=== PATIENT | male | born 1990 | race Caucasian/White ===

== ENCOUNTER 2016-11-29 08:32 | Emergency (ER) | payer OTHER ==
[2016-11-29 08:37] VITALS: BP 126/66; PULSE 60; TEMP 98.1; BMI 33.5
--- NOTE | 2016-11-29 08:59 | PDOC ---
History of Present Illness - General Chief Complaint: Eye Problem Stated Complaint: PINK EYE Time Seen by Provider: 11/29/16 08:45 History Source: Patient Exam Limitations: No Limitations - History of Present Illness Initial Comments: CHIEF COMPLAINT: 26 y/o afebrile male with PMH HTN c/o red eyes that are stuck shut with yellow crust in the morning for the past few days. HISTORY OF PRESENT ILLNESS: The patient also needs a refill on his diovan as he does not have a PCP. He denies f/c, itchy eyes, changes in vision/hearing, [place]. Vital signs on arrival are within normal limits. REVIEW OF SYSTEMS: GENERAL/CONSTITUTIONAL: No fever/chills. No weakness. No weight change. HEAD, EYES, EARS, NOSE AND THROAT: No change in vision. No ear pain or discharge. No sore throat. +red eyes and yellow crusting MUSCULOSKELETAL: No joint or muscle swelling or pain. No neck or back pain. SKIN: No rash or easy bruising. NEUROLOGIC: No headache, vertigo, loss of consciousness, or loss of sensation. GENERAL: The patient is awake, alert, and fully oriented, in no acute distress. HEAD: Normal with no signs of trauma. EYES: Pupils equal, round and reactive to light, extraocular movements intact, sclera anicteric, conjunctiva injected b/l. Yellow crusting seen on lid margin of left eye. EXTREMITIES: Normal range of motion, no edema. NEUROLOGICAL: Normal speech, normal gait. PSYCH: Normal mood, normal affect. SKIN: Warm, Dry, normal turgor, no rashes or lesions noted. Past History - Past Medical History Allergies/Adverse Reactions: Allergies Allergy/AdvReac Type Severity Reaction Status Date / Time No Known Allergies Allergy Verified 08/24/16 23:19 Home Medications: Ambulatory Orders Erythromycin 0.5% Eye Ointment [Erythromycin 0.5% Eye Ointment -] 1 applic OU TID #1 tube 11/29/16 Valsartan [Diovan] 80 mg PO DAILY 11/29/16 Valsartan [Diovan] 80 mg PO DAILY #15 tablet 11/29/16 Anemia: No Asthma: No DVT: No Dialysis: No HTN: Yes - Surgical History Appendectomy: No Cardiac Surgery: No - Psycho/Social/Smoking Cessation Hx Anxiety: No Suicidal Ideation: No Smoking History: Never smoked Have you smoked in the past 12 months: No Information on smoking cessation initiated: No Hx Alcohol Use: No Drug/Substance Use Hx: No Substance Use Type: None *Physical Exam - Vital Signs Last Vital Signs Temp Pulse Resp BP Pulse Ox 98.1 F 60 16 126/66 100 11/29/16 08:35 11/29/16 08:35 11/29/16 08:35 11/29/16 08:35 11/29/16 08:35 Medical Decision Making - Medical Decision Making A/P: 26 y/o afebrile male with b/l conjunctivitis. Will discharge to home with rx for erythro eye ointment and diovan. Provided referral to Dr. George for follow up and future prescription refills. The patient verbalizes understanding of all instructions, has no further questions and is awaiting discharge. *DC/Admit/Observation/Transfer Diagnosis at time of Disposition: Medication refill Conjunctivitis Qualifiers: Conjunctivitis type: acute Acute conjunctivitis type: bacterial Laterality: bilateral Qualified Code(s): H10.33 - Unspecified acute conjunctivitis, bilateral - Discharge Dispostion Disposition: HOME Condition at time of disposition: Good - Prescriptions Prescriptions: Valsartan [Diovan] 80 mg PO DAILY #15 tablet Erythromycin 0.5% Eye Ointment [Erythromycin 0.5% Eye Ointment -] 1 applic OU TID #1 tube - Referrals Referrals: Marcelino George MD [Staff Physician] - Call tomorrow - Patient Instructions Printed Discharge Instructions: DI for Conjunctivitis Additional Instructions: Discharge Instructions: -Take medication as prescribed -Please follow up with Dr. George as soon as possible to set up care and receive Diovan prescriptions -REturn to the ER with any worsening or concerning symptoms Print Language: CITIZEN OF [place]
== END 2016-11-29 09:07 | disposition home or self-care (01) ==
LOC: JERFT 08:32
DX: H10.33 Unspecified acute conjunctivitis, bilateral (principal); I10 Essential (primary) hypertension; Z76.0 Encounter for issue of repeat prescription
CPT/HCPCS: 99281-25

== ENCOUNTER 2016-12-06 00:03 | Emergency (ER) | payer OTHER ==
[2016-12-06] MEDS ORDERED: AMOXICILLIN 500 MG CAPSULE (FP) PO ONE (00:50)
[2016-12-06 01:03] VITALS: BP 127/71; PULSE 73; BMI 34.4
[2016-12-06] MEDS ORDERED: AMOXICILLIN 500 MG CAPSULE (FP) ONE (01:03)
--- NOTE | 2016-12-06 01:20 | PDOC ---
History of Present Illness - General Chief Complaint: Sore Throat Stated Complaint: SORE THROAT Time Seen by Provider: 12/06/16 00:44 History Source: Patient Exam Limitations: No Limitations - History of Present Illness Initial Comments: 12/06/16 01:14 26yo Male patient presents to ED c/o sore throat x 1 day. He denies fever, CP, abd pain, n/v/d, diff breathing, smoking, drug use, or any other complaints at this time. Timing/Duration: reports: yesterday Severity: reports: severe Possible Cause: Yes: no prior episodes Past History - Travel Traveled outside of the country in the last 30 days: No Close contact w/someone who was outside of country & ill: No - Past Medical History Allergies/Adverse Reactions: Allergies Allergy/AdvReac Type Severity Reaction Status Date / Time No Known Allergies Allergy Verified 12/06/16 00:13 Home Medications: Ambulatory Orders Valsartan [Diovan] 80 mg PO DAILY #15 tablet 11/29/16 Amoxicillin - [Amoxicillin 500mg Capsule -] 500 mg PO TID #21 capsule 12/06/16 Pantoprazole Sodium [Protonix -] 40 mg PO DAILY #30 tablet.ec 12/06/16 Anemia: No Asthma: No DVT: No Dialysis: No HTN: Yes - Surgical History Appendectomy: No Cardiac Surgery: No - Psycho/Social/Smoking Cessation Hx Anxiety: No Suicidal Ideation: No Smoking History: Never smoked Have you smoked in the past 12 months: No Hx Alcohol Use: No Drug/Substance Use Hx: No Substance Use Type: None Respiratory Specific PMHX - Complaint Specific PMHX Angina: No Pulmonary Embolus: No Review of Systems - Review of Systems Able to Perform ROS?: Yes Is the patient limited Eritrean proficient: No Constitutional: No: Chills, Fever HEENTM: Yes: Throat Pain, Difficulty Swallowing. No: Nose Congestion, Throat Swelling, Dental Problems Respiratory: Yes: Cough. No: Shortness of Breath, Stridor, Wheezing, Productive cough Cardiac (ROS): No: Chest Pain, Lightheadedness, Palpitations, Syncope ABD/GI: No: Constipated, Diarrhea, Nausea, Poor Appetite, Poor Fluid Intake, Vomiting Integumentary: No: Bruising, Erythema, Rash Neurological: No: Headache, Numbness, Paresthesia, Seizure, Tingling, Tremors, Weakness, Ataxia, Dizziness All Other Systems: Reviewed and Negative *Physical Exam - Vital Signs Last Vital Signs Temp Pulse Resp BP Pulse Ox 73 18 127/71 100 12/06/16 00:13 12/06/16 00:13 12/06/16 00:13 12/06/16 00:13 - Physical Exam General Appearance: Yes: Nourished, Appropriately Dressed. No: Apparent Distress, Mild Distress, Moderate Distress, Severe Distress HEENT: positive: EOMI, MARSHA, Normal Voice, Symmetrical, TMs Normal, Pharyngeal Erythema. negative: Muffled/Hoarse voice, Tonsillar Exudate, Tonsillar Erythema , TM Bulging, TM Dull, TM Erythema Neck: positive: Trachea midline, Supple. negative: Rigid, Stridor, Lymphadenopathy (R), Lymphadenopathy (L) Respiratory/Chest: positive: Lungs Clear, Normal Breath Sounds. negative: Chest Tender, Respiratory Distress, Accessory Muscle Use, Labored Respiration, Rapid RR Cardiovascular: positive: Regular Rhythm, Regular Rate Gastrointestinal/Abdominal: positive: Normal Bowel Sounds, Soft. negative: Tender, Distended, Guarding, Rebound, Tenderness Lymphatic: negative: Adenopathy Musculoskeletal: positive: Normal Inspection. negative: CVA Tenderness, Decreased Range of Motion Extremity: positive: Normal Capillary Refill, Normal Inspection, Normal Range of Motion. negative: Swelling, Erythema, Inflammation Integumentary: positive: Normal Color, Dry, Warm. 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, Fully Oriented, Alert, Normal Mood/ Affect, Normal Response, Motor Strength 5/5 ED Treatment Course - Medications Given in the ED: ED Medications Discontinued Medications Generic Name Dose Route Start Last Admin Trade Name Marzena PRN Reason Stop Dose Admin Amoxicillin 500 mg 12/06/16 00:50 12/06/16 01:05 Amoxicillin - PO 12/06/16 00:51 500 mg ONCE ONE Administration *DC/Admit/Observation/Transfer Diagnosis at time of Disposition: Gastroesophageal reflux disease with esophagitis, Cough - Discharge Dispostion Disposition: HOME Condition at time of disposition: Stable Admit: No - Prescriptions Prescriptions: Amoxicillin - [Amoxicillin 500mg Capsule -] 500 mg PO TID #21 capsule Pantoprazole Sodium [Protonix -] 40 mg PO DAILY #30 tablet.ec - Patient Instructions Printed Discharge Instructions: DI for Gastroesophageal Reflux Disease (GERD) Additional Instructions: FOLLOW UP WITH YOUR PRIMARY CARE PROVIDER. CALL TO SCHEDULE APPOINTMENT. TAKE MEDICATIONS PRESCRIBED. MOTRIN OR TYLENOL FOR PAIN NEEDED. RETURN IF WORSENING OF SYMPTOMS. Print Language: SERBIAN - Post Discharge Activity Work/School Note: Back to Work
== END 2016-12-06 04:47 | disposition home or self-care (01) ==
LOC: JER 00:03
DX: K21.9 Gastro-esophageal reflux disease without esophagitis (principal); I10 Essential (primary) hypertension
CPT/HCPCS: 99281-25

== ENCOUNTER → 2016-12-10 | Emergency (ER) | payer OTHER ==
[~2016-12-10] MED LIST: FAMOTIDINE 20 MG/50 ML IVPB 50 ML IVPB ONE; PANTOPRAZOLE SODIUM 100 ML IVPB ONE
--- NOTE | 2016-12-10 03:53 | PDOC ---
History of Present Illness - General Stated Complaint: COUGH, THROAT PAIN Time Seen by Provider: 12/10/16 03:49 History Source: Patient Exam Limitations: No Limitations - History of Present Illness Timing/Duration: reports: week (one week) Possible Cause: Yes: no prior episodes Associated Symptoms: reports: cough, fever/chills, nasal congestion. denies: chest pain/soreness, facial pain Past History - Travel Traveled outside of the country in the last 30 days: No Close contact w/someone who was outside of country & ill: No - Past Medical History Allergies/Adverse Reactions: Allergies Allergy/AdvReac Type Severity Reaction Status Date / Time No Known Allergies Allergy Verified 12/06/16 00:13 Home Medications: Ambulatory Orders Valsartan [Diovan] 80 mg PO DAILY #15 tablet 11/29/16 Amoxicillin - [Amoxicillin 500mg Capsule -] 500 mg PO TID #21 capsule 12/06/16 Pantoprazole Sodium [Protonix -] 40 mg PO DAILY #30 tablet.ec 12/06/16 Anemia: No Asthma: No DVT: No Dialysis: No HTN: Yes - Surgical History Appendectomy: No Cardiac Surgery: No - Psycho/Social/Smoking Cessation Hx Anxiety: No Suicidal Ideation: No Smoking History: Never smoked Have you smoked in the past 12 months: No Hx Alcohol Use: No Drug/Substance Use Hx: No Substance Use Type: None Respiratory Specific PMHX - Complaint Specific PMHX Angina: No Pulmonary Embolus: No Review of Systems - Review of Systems Able to Perform ROS?: Yes Comments:: 12/10/16 03:50 CONSTITUTIONAL: Absent: fever, chills, diaphoresis, generalized weakness, malaise, loss of appetite HEENT: +nasal congestion Absent: rhinorrhea, throat pain, throat swelling, difficulty swallowing, mouth swelling, ear pain, eye pain, visual Changes CARDIOVASCULAR: Absent: chest pain, loss of consciousness, palpitations, irregular heart rate, peripheral edema RESPIRATORY: +cough Absent: shortness of breath, dyspnea with exertion, orthopnea, wheezing, stridor , hemoptysis GASTROINTESTINAL: Absent: abdominal pain, abdominal distension, nausea, vomiting, diarrhea, constipation, melena, hematochezia GENITOURINARY: Absent: dysuria, frequency, urgency, hesitancy, hematuria, flank pain, genital pain MUSCULOSKELETAL: Absent: myalgia, arthralgia, joint swelling SKIN: Absent: rash, itching, pallor HEMATOLOGIC/IMMUNOLOGIC: Absent: easy bleeding, easy bruising, lymphadenopathy, frequent infections ENDOCRINE: Absent: unexplained weight gain, unexplained weight loss, heat intolerance, cold intolerance NEUROLOGIC: Absent: headache, focal weakness or paresthesias, dizziness, unsteady gait, seizure, mental status changes, bladder or bowel incontinence PSYCHIATRIC: Absent: anxiety, depression, suicidal or homicidal ideation, hallucinations. Is the patient limited Chinese proficient: No *Physical Exam - Physical Exam Comments: 12/10/16 03:51 GENERAL: Well developed, well nourished. Awake and alert. No acute distress. HEENT: Normocephalic, atraumatic. PERRLA, EOMI. No conjunctival pallor. Sclera are non- icteric. Moist mucous membranes. Oropharynx is clear. NECK: Supple. Full ROM. No JVD. Carotid pulses 2+ and symmetric, without bruits. No thyromegaly. No lymphadenopathy. CARDIOVASCULAR: Regular rate and rhythm. No murmurs, rubs, or gallops. Distal pulses are 2+ and symmetric. PULMONARY: No evidence of respiratory distress. Lungs clear to auscultation bilaterally. No wheezing, rales or rhonchi. ABDOMINAL: Soft. Non-tender. Non-distended. No rebound or guarding. No organomegaly. Normoactive bowel sounds. MUSCULOSKELETAL Normal range of motion at all joints. No bony deformities or tenderness. No CVA tenderness. EXTREMITIES: No cyanosis. No clubbing. No edema. No calf tenderness. SKIN: Warm and dry. Normal capillary refill. No rashes. No jaundice. NEUROLOGICAL: Alert, awake, appropriate. Cranial nerves 2-12 intact. No deficits to light touch and temperature in face, upper extremities and lower extremities. No motor deficits in the in face, upper extremities and lower extremities. Normoreflexic in the upper and lower extremities. Normal speech. Toes are down- going bilaterally. Gait is normal without ataxia. PSYCHIATRIC: Cooperative. Good eye contact. Appropriate mood and affect. ED Treatment Course - RADIOLOGY Radiology Studies Ordered: Category Date Time Status CHEST PA & LAT [RAD] Stat Radiology 12/10/16 03:49 Ordered Chest X-Ray Result: No Infiltrates Radiograph Interpretation: 12/10/16 03:56 CXR 2v Progress Note - Progress Note Progress Note: 26-year-old male presents to the emergency department complaining of a nonproductive cough with rhinnorhea with an initial fever (x7d ago) of 100.9 but denies chills, nausea/vomiting/diarrhea, constipation, facial pain, difficulty swallowing, sore throat, neck pains, chest pain, back pains, shortness of breath, abdominal pains or urinary symptoms. *DC/Admit/Observation/Transfer Diagnosis at time of Disposition: Viral syndrome, Cough - Discharge Dispostion Disposition: HOME Condition at time of disposition: Stable Admit: No - Patient Instructions Printed Discharge Instructions: Cough, DI for Viral Syndrome Additional Instructions: Increase fluids Rest Take tylenol/motrin as needed for pain Follow up with your pmd this week Return to the ER for severe/persistent/worsening symptoms
[2016-12-10 04:02] VITALS: BP 135/76; PULSE 73; TEMP 97.7; BMI 38.7
== END | disposition home or self-care (01) ==
LOC: JER 03:37
DX: B34.9 Viral infection, unspecified (principal); I10 Essential (primary) hypertension
CPT/HCPCS: 71020-TC; 99281-25

== ENCOUNTER 2016-12-31 12:48 | Emergency (ER) | payer OTHER ==
--- NOTE | 2016-12-31 13:15 | PDOC ---
History of Present Illness - General History Source: Patient Exam Limitations: No Limitations - History of Present Illness Initial Comments: 12/31/16 13:11 The patient is a 26-year-old male, with no significant past medical history, who presents the emergency department with several weeks of intermittent right sided facial/head pressure. He describes it as a mild sensation of "pressure." It is of subacute onset and gradual offset. It is localized to the right valente- ocular, right forehead, and right frontotemporal areas. It is a constant sensation, and does not throb. It lasts minutes to hours. He denies associated nausea, photophobia, phonophobia. It is not exacerbated by movement. It is sometimes, but not always, associated with "right eye redness and left eye redness." He does not have associated right sided lacrimation or rhinorrhea. There are no associated periods of focal weakness or paresthesias, speech changes, vision changes. He denies weight loss. He denies fever, chills, sweats. He denies rash. He denies trauma. <Eddi Robles - Last Filed: 12/31/16 14:23> <Katharine May - Last Filed: 12/31/16 14:28> - General Stated Complaint: PRESSURE IN HIS R SIDE OF THE HEAD Time Seen by Provider: 12/31/16 12:52 Past History - Past Medical History Anemia: No Asthma: No DVT: No Dialysis: No HTN: Yes - Surgical History Appendectomy: No Cardiac Surgery: No - Psycho/Social/Smoking Cessation Hx Anxiety: No Suicidal Ideation: No Smoking History: Never smoked Have you smoked in the past 12 months: No Hx Alcohol Use: No Drug/Substance Use Hx: No Substance Use Type: None <Eddi Robles - Last Filed: 12/31/16 14:23> <Katharine May - Last Filed: 12/31/16 14:28> - Past Medical History Allergies/Adverse Reactions: Allergies Allergy/AdvReac Type Severity Reaction Status Date / Time No Known Allergies Allergy Verified 12/31/16 13:20 Home Medications: Ambulatory Orders Valsartan [Diovan] 80 mg PO DAILY #15 tablet 11/29/16 Amox-Tr/K Cl [Augmentin 875Mg Tablet] 1 tab PO BID #20 tablet 12/31/16 Fluticasone Prop 0.05% Nasal [Flonase] 1 - 2 spray NS DAILY #1 spray.pump Loratadine [Claritin -] 10 mg PO DAILY #10 tablet 12/31/16 Review of Systems - Review of Systems Comments:: 12/31/16 13:12 CONSTITUTIONAL: Absent: fever, chills, diaphoresis, generalized weakness, malaise, loss of appetite HEENT: Present: see HPI Absent: rhinorrhea, nasal congestion, throat pain, throat swelling, difficulty swallowing, mouth swelling, ear pain, eye pain, visual Changes CARDIOVASCULAR: Absent: chest pain, loss of consciousness, palpitations, irregular heart rate, peripheral edema RESPIRATORY: Absent: cough, shortness of breath, dyspnea with exertion, orthopnea, wheezing, stridor, hemoptysis GASTROINTESTINAL: Absent: abdominal pain, abdominal distension, nausea, vomiting, diarrhea, constipation, melena, hematochezia GENITOURINARY: Absent: dysuria, frequency, urgency, hesitancy, hematuria, flank pain, genital pain MUSCULOSKELETAL: Absent: myalgia, arthralgia, joint swelling SKIN: Absent: rash, itching, pallor HEMATOLOGIC/IMMUNOLOGIC: Absent: easy bleeding, easy bruising, lymphadenopathy, frequent infections ENDOCRINE: Absent: unexplained weight gain, unexplained weight loss, heat intolerance, cold intolerance NEUROLOGIC: Present: headace Absent: focal weakness or paresthesias, dizziness, unsteady gait, seizure, mental status changes, bladder or bowel incontinence PSYCHIATRIC: Absent: anxiety, depression, suicidal or homicidal ideation, hallucinations. <Eddi Robles - Last Filed: 12/31/16 14:23> *Physical Exam - Physical Exam Comments: 12/31/16 13:13 GENERAL: Well developed, well nourished. Awake and alert. No acute distress. HEENT: Normocephalic, atraumatic. PERRLA, EOMI. No conjunctival pallor. Sclera are non- icteric. Moist mucous membranes. Oropharynx is clear. NECK: Supple. Full ROM. No JVD. Carotid pulses 2+ and symmetric, without bruits. No thyromegaly. No lymphadenopathy. CARDIOVASCULAR: Regular rate and rhythm. No murmurs, rubs, or gallops. Distal pulses are 2+ and symmetric. PULMONARY: No evidence of respiratory distress. Lungs clear to auscultation bilaterally. No wheezing, rales or rhonchi. ABDOMINAL: Soft. Non-tender. Non-distended. No rebound or guarding. No organomegaly. Normoactive bowel sounds. MUSCULOSKELETAL Normal range of motion at all joints. No bony deformities or tenderness. No CVA tenderness. EXTREMITIES: No cyanosis. No clubbing. No edema. No calf tenderness. SKIN: Warm and dry. Normal capillary refill. No rashes. No jaundice. NEUROLOGICAL: Alert, awake, appropriate. Cranial nerves 2-12 intact. No deficits to light touch and temperature in face, upper extremities and lower extremities. No motor deficits in the in face, upper extremities and lower extremities. Normoreflexic in the upper and lower extremities. Normal speech. Toes are down- going bilaterally. Gait is normal without ataxia. PSYCHIATRIC: Cooperative. Good eye contact. Appropriate mood and affect. <Eddi Robles - Last Filed: 12/31/16 14:23> - Vital Signs Last Vital Signs Temp Pulse Resp BP Pulse Ox 98.7 F 87 16 122/65 100 12/31/16 12:51 12/31/16 12:51 12/31/16 12:51 12/31/16 12:51 12/31/16 12:51 <Katharine May - Last Filed: 12/31/16 14:28> ED Treatment Course - RADIOLOGY Radiology Studies Ordered: Category Date Time Status HEAD CT WITHOUT CONTRAST [CT] Stat CT Scan 12/31/16 13:01 Ordered <Eddi Robles - Last Filed: 12/31/16 14:23> - RADIOLOGY Radiograph Interpretation: 12/31/16 14:27 EXAM#: TYPE/EXAM: RESULT: [id number] CT/HEAD CT WITHOUT CONTRAST Cranial CT without contrast Clinical information: right-sided head pressure The intracranial structures demonstrate no discrete noncontrast abnormality. The ventricles and cisterns appear unremarkable. The calvarium appears intact. Mild mucosal thickening is seen within the partially imaged sphenoid and left ethmoid sinuses. Impression: As discussed above. 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 I answered all of the patient's questions. The patient was satisfied with the care received and felt comfortable with the discharge plan and treatment plan. The patient will call their primary care physician within 24 hours to arrange follow-up and will return to the Emergency Department with any new, persistent or worsening symptoms. <Eddi Robles - Last Filed: 12/31/16 14:23> *DC/Admit/Observation/Transfer <Eddi Robles - Last Filed: 12/31/16 14:23> <Katharine May - Last Filed: 12/31/16 14:28> Diagnosis at time of Disposition: Sinusitis - Discharge Dispostion Disposition: HOME Condition at time of disposition: Improved - Prescriptions Prescriptions: Amox-Tr/K Cl [Augmentin 875Mg Tablet] 1 tab PO BID #20 tablet Loratadine [Claritin -] 10 mg PO DAILY #10 tablet Fluticasone Prop 0.05% Nasal [Flonase] 1 - 2 spray NS DAILY #1 spray.pump - Referrals Referrals: Trevon Blankenship [Primary Care Provider] - - Patient Instructions Printed Discharge Instructions: DI for Sinusitis Additional Instructions: Return to the emergency department immediately with ANY new, persistent or worsening symptoms. You MUST call and follow up with your doctor tomorrow. Please make sure your doctor reviews the results of your emergency department evaluation. - Post Discharge Activity Work/School Note: Back to Work
[2016-12-31 13:27] VITALS: BP 122/65; PULSE 87; TEMP 98.7; BMI 34.7
== END 2016-12-31 14:47 | disposition home or self-care (01) ==
LOC: SUPCPDRO 12:48 → FER 12:48
DX: J01.90 Acute sinusitis, unspecified (principal); I10 Essential (primary) hypertension
CPT/HCPCS: 70450-TC; 99281-25

== ENCOUNTER 2017-01-09 04:05 | Emergency (ER) | payer OTHER ==
[2017-01-09] MEDS ORDERED: PANTOPRAZOLE SODIUM 40 MG in SODIUM CHLORIDE 100 ML IVPB ONE (04:32)
[2017-01-09] MEDS ORDERED: SODIUM CHLORIDE 1,000 ML IV STA (04:32)
[2017-01-09] MEDS ORDERED: FAMOTIDINE 20 MG/50 ML IVPB 50 ML IVPB ONE (04:32)
--- NOTE | 2017-01-09 05:01 | PDOC ---
History of Present Illness - General Chief Complaint: Pain Stated Complaint: ABDOMINAL PAIN Time Seen by Provider: 01/09/17 04:21 History Source: Patient Exam Limitations: No Limitations - History of Present Illness Travel History: No Initial Comments: 01/09/17 04:57 26yo Male patient presents to ED c/o diarrhea x 2 days, with generalized abd pain this morning. Patient denies n/v/d, fever, CP, back pain, diff breathing or any other complaints at time. Past History - Travel Traveled outside of the country in the last 30 days: No Close contact w/someone who was outside of country & ill: No - Past Medical History Allergies/Adverse Reactions: Allergies Allergy/AdvReac Type Severity Reaction Status Date / Time No Known Allergies Allergy Verified 01/09/17 04:24 Home Medications: Ambulatory Orders Valsartan [Diovan] 80 mg PO DAILY #15 tablet 11/29/16 Famotidine [Pepcid -] 40 mg PO BID #14 tablet 01/09/17 Anemia: No Asthma: No DVT: No Dialysis: No HTN: Yes - Surgical History Appendectomy: No Cardiac Surgery: No - Psycho/Social/Smoking Cessation Hx Anxiety: No Suicidal Ideation: No Smoking History: Never smoked Have you smoked in the past 12 months: No Information on smoking cessation initiated: No Hx Alcohol Use: No Drug/Substance Use Hx: No Substance Use Type: None Abd/GI Specific PMHX - Complaint Specific PMHX Colitis: No Diverticulitis: No Gall Bladder Disease: No GERD: No Hepatitis: No Irritable Bowel Synd (IBS): No Pancreatitis: No GI Ulcer Disease: No Review of Systems - Review of Systems Able to Perform ROS?: Yes Is the patient limited Azeri proficient: No Constitutional: No: Chills, Fever Cardiac (ROS): No: Chest Pain, Lightheadedness, Palpitations, Syncope, Chest Tightness ABD/GI: Yes: Diarrhea, Other (Generalized abdominal pain). No: Nausea, Poor Appetite, Poor Fluid Intake, Rectal Bleeding, Vomiting : No: Dysuria, Flank Pain, Urgency Musculoskeletal: No: Back Pain All Other Systems: Reviewed and Negative *Physical Exam - Vital Signs Last Vital Signs Temp Pulse Resp BP Pulse Ox 97.5 F L 75 18 117/63 100 01/09/17 04:22 01/09/17 04:22 01/09/17 04:22 01/09/17 04:22 01/09/17 04:22 - Physical Exam General Appearance: Yes: Nourished, Appropriately Dressed. No: Apparent Distress, Mild Distress, Moderate Distress, Severe Distress Respiratory/Chest: positive: Lungs Clear, Normal Breath Sounds. negative: Chest Tender, Respiratory Distress, Accessory Muscle Use, Labored Respiration, Rapid RR Cardiovascular: positive: Regular Rhythm, Regular Rate. negative: Edema, JVD, Murmur Gastrointestinal/Abdominal: positive: Normal Bowel Sounds, Soft, Increased Bowel Sounds, Distended, Tenderness (Mild tenderness to all quadrants. No rebound, guarding, Mack's sign noted.). negative: Guarding, Rebound Musculoskeletal: positive: Normal Inspection. 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 Denies abd pain or any other complaints at this time. 01-09-2017 0611 *DC/Admit/Observation/Transfer Diagnosis at time of Disposition: Abdominal pain Qualifiers: Abdominal location: generalized Qualified Code(s): R10.84 - Generalized abdominal pain - Discharge Dispostion Disposition: HOME Condition at time of disposition: Improved Admit: No - Prescriptions Prescriptions: Famotidine [Pepcid -] 40 mg PO BID #14 tablet - Patient Instructions Printed Discharge Instructions: DI for Abdominal Pain-Adult Additional Instructions: FOLLOW UP WITH YOUR PRIMARY CARE PROVIDER THIS WEEK FOR FURTHER EVALUATION. TAKE MEDICATIONS PRESCRIBED. RETURN IF YOUR SYMPTOMS WORSEN OR ANY CONCERNS FOR FURTHER EVALUATION. Print Language: AZERI
[2017-01-09 05:08] LABS: EOSINOPHIL 3.4 % (0-4.5); MCH 30.4 pg (25.7-33.7); MCHC 34.6 g/dl (32.0-35.9); MEAN CELL VOLUME 87.8 fl (80-96); MEAN PLT VOLUME 8.7 fl (7.5-11.1); NEUTROPHILS 51.4 % (42.8-82.8); PLATELET COUNT 174 K/MM3 (134-434); RDW 13.7 % (11.9-15.9); WHITE BLOOD COUNT 8.7 K/mm3 (4.0-10.0)
[2017-01-09 05:31] LABS: AMYLASE 50 U/L (25-115); ANION GAP 10 (8-16); BILIRUBIN,TOTAL 0.5 mg/dL (0.2-1.0); CALCIUM 8.3 mg/dL (8.5-10.1); CO2 26 mmol/L (21-32); CREATININE 0.8 mg/dL (0.7-1.3); GLUCOSE,RANDOM 107 mg/dL (74-106); SGOT/AST 21 U/L (15-37); SGPT/ALT 51 U/L (12-78); TOT PROT 7.4 g/dl (6.4-8.2)
[2017-01-09 05:32] LABS: ALK PHOS 74 U/L (45-117)
[2017-01-09 07:45] VITALS: BP 117/63; PULSE 75; TEMP 97.5; BMI 41.5
== END 2017-01-09 06:35 | disposition home or self-care (01) ==
LOC: JER 04:05
PROC: 3E0337Z Introduction of Electrolytic and Water Balance Substance into Peripheral Vein, Percutaneous Approach (ICD-10-PCS; principal; 2017-01-09)
DX: R10.84 Generalized abdominal pain (principal); I10 Essential (primary) hypertension
CPT/HCPCS: 36415; 80053; 82150; 83690; 85025; 96360; 99281-25

== ENCOUNTER 2017-02-12 16:19 | Emergency (ER) | payer OTHER ==
[2017-02-12 16:34] VITALS: BP 112/57; PULSE 67; TEMP 98; BMI 34.2
--- NOTE | 2017-02-12 16:44 | PDOC ---
History of Present Illness - General History Source: Patient Exam Limitations: No Limitations, Language Barrier - History of Present Illness Initial Comments: 02/12/17 17:26 The patient is a 26 year old Czech speaking male ([employer] phone used) with a significant past medical history of hypertension, on Diovan, who presents to the emergency department with complaints of a headache in the posterior aspect of his head for the past 3 days. The patient describes the headache as an intermittent uncomfortable pressure sensation in nature that is a 6/10 in severity. He denies any radiation of the headache. He also states that he felt a subjective fever but it has since resolved. The patient notes that these symptoms have been intermittent since he was diagnosed with hypertension over a year ago. He states that he has no other symptoms and denies taking any over the counter medications for the pain. The patient states that that last time he saw his PCP was a month ago and did not discuss his symptoms. The patient was present in the ED 2 months ago and had a CT done which was negative. [employer] Phone Used: [employer] Partida. Phone # [phone] Allergies: None Social history: Denies smoking, drinking, and illicit drug use. PCP: Dr. Blankenship <Светлана Prater - Last Filed: 02/12/17 17:26> - General History Source: Patient, Old Records Exam Limitations: No Limitations <Rajni Frankel - Last Filed: 02/12/17 17:30> - General Chief Complaint: Headache Stated Complaint: HEADACHE Time Seen by Provider: 02/12/17 16:44 Past History <Светлана Prater - Last Filed: 02/12/17 17:26> - Past Medical History Anemia: No Asthma: No DVT: No Dialysis: No HTN: Yes - Surgical History Appendectomy: No Cardiac Surgery: No - Psycho/Social/Smoking Cessation Hx Anxiety: No Suicidal Ideation: No Smoking History: Never smoked Have you smoked in the past 12 months: No Information on smoking cessation initiated: No Hx Alcohol Use: No Drug/Substance Use Hx: No Substance Use Type: None <Rajni Frankel - Last Filed: 02/12/17 17:30> - Past Medical History Allergies/Adverse Reactions: Allergies Allergy/AdvReac Type Severity Reaction Status Date / Time No Known Allergies Allergy Verified 02/12/17 16:34 Home Medications: Ambulatory Orders Valsartan [Diovan] 80 mg PO DAILY #15 tablet 11/29/16 Review of Systems - Review of Systems Able to Perform ROS?: Yes Comments:: 02/12/17 17:27 CONSTITUTIONAL: +Headache +Subjective fever Absent: no chills, no fatigue EYES: Absent: visual changes ENT: Absent: ear pain, no sore throat CARDIOVASCULAR: Absent: chest pain, no palpitations RESPIRATORY: Absent: cough, no SOB GI: Absent: abdominal pain, no nausea, no vomiting, no constipation, no diarrhea GENITOURINARY: Absent: dysuria, no frequency, no hematuria MUSCULOSKELETAL: Absent: back pain, no arthralgia, no myalgia SKIN: Absent: rash <Светлана Prater - Last Filed: 02/12/17 17:26> *Physical Exam - Vital Signs Last Vital Signs Temp Pulse Resp BP Pulse Ox 98 F 67 16 112/57 99 02/12/17 16:22 02/12/17 16:22 02/12/17 16:22 02/12/17 16:22 02/12/17 16:22 - Physical Exam Comments: 02/12/17 17:27 GENERAL: Well-appearing, well-nourished. No apparent distress. HEENT: Normocephalic, atraumatic. PERRL, EOM intact. CARDIOVASCULAR: Normal S1, S2. Regular rate and rhythm. PULMONARY: Clear to auscultation bilaterally. ABDOMEN: Soft, non-distended, non-tender. EXTREMITIES: Normal ROM in all four extremities. No gross deformities. SKIN: Warm, dry. No rash NEUROLOGICAL: No focal neurological deficits. <Светлана Prater - Last Filed: 02/12/17 17:26> - Vital Signs Last Vital Signs Temp Pulse Resp BP Pulse Ox 98 F 67 16 112/57 99 02/12/17 16:22 02/12/17 16:22 02/12/17 16:22 02/12/17 16:22 02/12/17 16:22 <Rajni Frankel - Last Filed: 02/12/17 17:30> ED Treatment Course - Medications Given in the ED: ED Medications Discontinued Medications Generic Name Dose Route Start Last Admin Trade Name Freq PRN Reason Stop Dose Admin Ibuprofen 800 mg 02/12/17 16:46 02/12/17 16:53 Motrin - PO 02/12/17 16:47 800 mg ONCE ONE Administration <Светлана Prater - Last Filed: 02/12/17 17:26> Medical Decision Making - Medical Decision Making 02/12/17 16:47 26 y/o male with h/o HTN who presents to the ED with c/o headache in the posterior aspect of his head intermittently over the past year which he describes as pressure. The patient was seen in the ED 2 months ago and had a CT head at that time that was negative for intra-cranial process but positive for sinusitis. DDx includes but is not limited to: tension headache, migraine headache, cluster headache. Since the patient is normotensive, has a completely non-focal neurologic exam and had recent CT imaging of his head, will not obtain a CT head at this time. Plan: 1. Pain management 2. Will instruct the patient to follow-up with his primary care physician 3. Will encourage the patient to take tylenol or ibuprofen for the pain 4. Will instruct the patient to return to the ED if Sx persist, worsen or new Sx arise. <Rajni Frankel - Last Filed: 02/12/17 17:30> *DC/Admit/Observation/Transfer - Attestations Scribe Attestion: 02/12/17 17:27 Documentation prepared by IRENE Jeffers, acting as medical dosimetrist for Rajni Frankel MD. <Светлана Prater - Last Filed: 02/12/17 17:26> - Discharge Dispostion Admit: No - Attestations Physician Attestion: 02/12/17 16:52 I, Dr. Rajni Frankel, attest that the scribes documentation that appears above has been prepared under my direction and personally reviewed by me in its entirety. I confirmed that the note above accurately reflects all work, treatment, procedures, and medical decision-making performed by me. <Rajni Frankel - Last Filed: 02/12/17 17:30> Diagnosis at time of Disposition: Headache - Discharge Dispostion Disposition: HOME Condition at time of disposition: Stable - Patient Instructions Printed Discharge Instructions: DI for Headache Additional Instructions: You may take tylenol or ibuprofen as needed for the pain. Please call your primary care physician tomorrow morning and make an appointment to be seen this week. Return to the ED if your symptoms persist, worsen or new symptoms arise. Print Language: TURKMEN
[2017-02-12] MEDS ORDERED: IBUPROFEN 400 MG TABLET (FP) PO ONE ×2 (16:46→16:52)
== END 2017-02-12 17:36 | disposition home or self-care (01) ==
LOC: FER 16:19
DX: R51 Headache (principal); I10 Essential (primary) hypertension
CPT/HCPCS: 99281-25

== ENCOUNTER 2017-05-19 13:16 | Emergency (ER) | payer OTHER ==
[2017-05-19 13:27] VITALS: BP 123/65; PULSE 72; TEMP 98.2; BMI 34.2
--- NOTE | 2017-05-19 13:46 | PDOC ---
History of Present Illness - General Chief Complaint: Lethargy Stated Complaint: FEELS WEAK EVERYDAY Time Seen by Provider: 05/19/17 13:17 - History of Present Illness Initial Comments: 05/19/17 13:39 Chief complaint: Headache History of present illness: Patient speaks no Citizen Of [place], history obtained through a clinical nurse manager. Complains of right sided headache for approximately 1-2 weeks, occurs daily, usually toward the end of the day. It is not present upon awakening. He is accompanied by numbness and tingling in his right uatsdin and cheek. Denies head trauma, increased stress, or history of headaches Review of systems: Denies any other visual or focal neurologic symptoms, unsteadiness of gait, chest pain, shortness of breath, abdominal pain, nausea, vomiting, diarrhea, urinary tract symptoms, recent URI, sore throat, cough, remainder systems reviewed and found to be negative Past medical history: As noted above, no headache history. Mild hypertension on medication, usually controlled, no history of MICROSCOPIST disease, cardiac disease, diabetes or other metabolic diseases. Takes Diovan for his high blood pressure. Has not taken any analgesics. 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 Fully active and without disability. Has not missed work Family history: Reviewed and noncontributory including MICROSCOPIST disease, aneurysms, cardiac disease including early coronary artery disease, diabetes, and cancer Physical exam: Alert and oriented 3, well-developed well-nourished, no acute distress, cooperative. Despite denying stress, he appears somewhat anxious. Afebrile, vital signs normal PERRLA 4 mm, fundi benign with sharp disc margins and good central venous pulsations. No A-V nicking, hemorrhages, or exudates. EOMs full without diplopia, visual sparks intact to confrontation. ENT clear Neck supple without bruit mass or nodes Chest clear to P&A CV regular without murmur rub or gallop pulses full and symmetric no JVD or edema Abdomen benign C2 to 12 intact. Strength full and symmetric. No focal sensory or motor deficits. Gait stable and unimpaired Extremities no CCE Skin clear, no rash, adequate turgor and wet mucous membranes Impression: Anxiety, occult stress, possible migraine, rule out acute intracranial process Plan: CT and further neurologic evaluation. Analgesics as needed. Past History - Past Medical History Allergies/Adverse Reactions: Allergies Allergy/AdvReac Type Severity Reaction Status Date / Time No Known Allergies Allergy Verified 02/12/17 16:34 Home Medications: Ambulatory Orders Valsartan [Diovan] 80 mg PO DAILY #15 tablet 11/29/16 Acetaminophen/Caffeine/Butalb [Fioricet -] 1 tab PO Q6H PRN #20 tablet MDD 4 08/25 Anemia: No Asthma: No DVT: No Dialysis: No HTN: Yes - Surgical History Appendectomy: No Cardiac Surgery: No - Psycho/Social/Smoking Cessation Hx Anxiety: Yes Suicidal Ideation: No Smoking History: Never smoked Have you smoked in the past 12 months: No Hx Alcohol Use: No Drug/Substance Use Hx: No Substance Use Type: None *Physical Exam - Vital Signs Last Vital Signs Temp Pulse Resp BP Pulse Ox 98.2 F 72 15 123/65 100 05/19/17 13:17 05/19/17 13:17 05/19/17 13:17 05/19/17 13:17 05/19/17 13:17 Medical Decision Making - Medical Decision Making 05/19/17 14:51 CT is negative. This is most likely migraine or recurrent tension headache. Medication prescribed and neurological consultation recommended. Patient is in no acute distress with no neurologic deficits, fully ambulatory upon discharge to follow-up as directed. Return to ER if symptoms worsen *DC/Admit/Observation/Transfer Diagnosis at time of Disposition: Migraine Qualifiers: Migraine type: without aura Status migrainosus presence: without status migrainosus Intractability: not intractable Qualified Code(s): G43.009 - Migraine without aura, not intractable, without status migrainosus - Discharge Dispostion Disposition: HOME Condition at time of disposition: Stable Admit: No - Prescriptions Prescriptions: Acetaminophen/Caffeine/Butalb [Fioricet -] 1 tab PO Q6H PRN #20 tablet MDD 4 PRN Reason: Headache - Referrals Referrals: Fabio Spencer DO [Staff Physician] - 1 week - Patient Instructions Printed Discharge Instructions: DI for Migraine - Post Discharge Activity Work/School Note: Back to Work
== END 2017-05-19 15:01 | disposition home or self-care (01) ==
LOC: FER 13:16
DX: G43.009 Migraine without aura, not intractable, without status migrainosus (principal); I10 Essential (primary) hypertension; F41.0 Panic disorder [episodic paroxysmal anxiety]
CPT/HCPCS: 70450-TC; 99282-25

== ENCOUNTER 2017-05-31 06:24 | Emergency (ER) | payer OTHER ==
[2017-05-31 07:28] VITALS: TEMP 97.8; BMI 38.7
--- NOTE | 2017-05-31 08:29 | PDOC ---
History of Present Illness - General Chief Complaint: Pain Stated Complaint: burning in leg Time Seen by Provider: 05/31/17 08:10 History Source: Patient Exam Limitations: No Limitations - History of Present Illness Initial Comments: 05/31/17 08:37 Patient is a 26-year-old male with past medical history of hypertension who presents to the emergency department today complaining of burning in his right upper leg and right facial numbness. Patient states that he was seen at the [facility] approximately 2 weeks ago for the facial numbness. He had a CAT scan at that time which was negative. Today he states that the numbness hasn 't changed since 2 weeks ago. Admits to a slight headache, rates it a 3 out of 10. He also states that he awoke this morning with burning in his right upper leg. He states that he felt "pins and needles" Denies recent travel. He is able to bear weight on the leg. Denies fevers, chills, malaise, chest pain, SOB, edema, N/V/D. Past History - Travel Traveled outside of the country in the last 30 days: No Close contact w/someone who was outside of country & ill: No - Past Medical History Allergies/Adverse Reactions: Allergies Allergy/AdvReac Type Severity Reaction Status Date / Time No Known Allergies Allergy Verified 05/31/17 07:28 Home Medications: Ambulatory Orders NK [No Known Home Medication] 05/31/17 Anemia: No Asthma: No DVT: No Dialysis: No HTN: Yes - Surgical History Appendectomy: No Cardiac Surgery: No - Psycho/Social/Smoking Cessation Hx Anxiety: No Suicidal Ideation: No Smoking History: Never smoked Have you smoked in the past 12 months: No Hx Alcohol Use: No Drug/Substance Use Hx: No Substance Use Type: None Review of Systems - Review of Systems Constitutional: No: Chills, Fever, Malaise, Weakness Respiratory: No: Cough, Shortness of Breath, Wheezing Cardiac (ROS): No: Chest Pain, Edema, Chest Tightness ABD/GI: No: Diarrhea, Nausea, Vomiting Musculoskeletal: Yes: Muscle Pain (R upper leg) Neurological: Yes: Headache, Numbness (R face), Paresthesia (R face, R upper leg ). No: Weakness All Other Systems: Reviewed and Negative *Physical Exam - Vital Signs Last Vital Signs Temp Pulse Resp BP Pulse Ox 97.8 F 72 18 122/54 99 05/31/17 07:26 05/31/17 07:26 05/31/17 07:26 05/31/17 07:26 05/31/17 07:26 - Physical Exam Comments: 05/31/17 08:56 GENERAL: Well developed, well nourished. AAOX3. No acute distress. HEENT: Normocephalic, atraumatic. PERRLA, EOMI. No conjunctival pallor. Sclera are non- icteric. Moist mucous membranes. Oropharynx is clear. NECK: Supple. Full ROM. No JVD. Carotid pulses 2+ and symmetric, without bruits. No thyromegaly. No lymphadenopathy. CARDIOVASCULAR: Regular rate and rhythm. No murmurs, rubs, or gallops. Distal pulses are 2+ and symmetric. PULMONARY: No evidence of respiratory distress. Lungs clear to auscultation bilaterally. No wheezing, rales or rhonchi. ABDOMINAL: Soft. Non-tender. Non-distended. No rebound or guarding. No organomegaly. Normoactive bowel sounds. MUSCULOSKELETAL Normal range of motion at all joints. No bony deformities or tenderness. No CVA tenderness. EXTREMITIES: No cyanosis. No clubbing. No edema. No calf tenderness. SKIN: Warm and dry. Normal capillary refill. No rashes. No jaundice. NEUROLOGICAL: Alert, awake, appropriate. Cranial nerves 2-12 intact. No deficits to light touch and temperature in face, upper extremities and lower extremities. No motor deficits in the in face, upper extremities and lower extremities. Normoreflexic in the upper and lower extremities. Normal speech. Toes are down- going bilaterally. Gait is normal without ataxia. PSYCHIATRIC: Cooperative. Good eye contact. Appropriate mood and affect. ED Treatment Course - LABORATORY CBC & Chemistry Diagram: 05/31/17 08:38 05/31/17 08:38 Medical Decision Making - Medical Decision Making 05/31/17 10:13 Patient is a 26-year-old male with past medical history of hypertension, headaches presents to the emergency department for right upper leg pain and facial numbness. Given the patient's facial numbness is old from approximately 2 + weeks ago and that the patient had a CT of the head at that time which was negative, we will defer CT exam today. Neuro exam shows no focal deficits, dysmetria or dysarthria or dyskinetokiesia. We will rule out DVT of the right lower extremity. Most likely muscle cramp 1. CBC CMP, PT/INR 2. IV fluids, venous duplex right lower extremity 3.Tylenol 4.reevaluate 05/31/17 11:25 US is negative for DVT in the R leg. CMP does not show electrolyte abnormalities. Pt. needs to follow up with neurology as an out patient. Will discharge home at this time. Pt. states he feels a little better after the tylenol. Pt. is able to ambulate. Pt. told to increase his fluid intake. Stressed to Pt. that he must follow up with neurology in regards to his symptoms. Pt. feels comfortable with discharge plan. He understands all discharge instructions and all questions were answered at this time. *DC/Admit/Observation/Transfer Diagnosis at time of Disposition: Leg pain, right - Discharge Dispostion Condition at time of disposition: Good Admit: No - Referrals Referrals: Trevon Blankenship [Primary Care Provider] - Call tomorrow Fabio Spencer DO [Staff Physician] - - Patient Instructions Printed Discharge Instructions: DI for Leg Pain Additional Instructions: Your ultrasound today was negative. Your blood work was normal. You may take Tylenol or Motrin as needed for pain. Drink plenty of fluids to help with your leg pain. You need to follow up with a neurologist given your symptoms. You were given a referral in the discharge packet. Follow up with your primary care doctor as well within 24 hours. Return to the emergency department if you feel your symptoms worsen, cannot walk , feel week, develop fevers or chills, or have any changes in your symptoms. Hein ultrasonido hoy fue negativo. Hein anlisis de kimberly fue normal. Usted puede michael Tylenol o Motrin segn sea necesario para el dolor. Janet muchos lquidos para ayudar con el dolor en las piernas. Usted necesita hacer un seguimiento con un neurlogo dado dominique sntomas. Le dieron nkechi referencia en el paquete de descarga. Seguimiento con hein mdico de atencin primaria, as kamaljit dentro de las 24 horas. Vuelva al departamento de emergencia si siente que dominique sntomas empeoran, no puede caminar, sentirse semana, desarrollar fiebre o escalofros, o tener cualquier cambio en dominique sntomas. Print Language: CYMRO
[2017-05-31] MEDS ORDERED: SODIUM CHLORIDE 1,000 ML IV STA (08:31)
[2017-05-31] MEDS ORDERED: ACETAMINOPHEN 325 MG TABLET (FP) PO ONE (08:36)
[2017-05-31] MEDS ORDERED: ACETAMINOPHEN 325 MG TABLET (FP) ONE (08:52)
[2017-05-31 09:24] LABS: BASOPHIL 0.5 % (0-2.0); EOSINOPHIL 1.3 % (0-4.5); MCH 30.1 pg (25.7-33.7); MCHC 33.8 g/dl (32.0-35.9); MEAN PLT VOLUME 9.4 fl (7.5-11.1); NEUTROPHILS 66.9 % (42.8-82.8); PLATELET COUNT 186 K/MM3 (134-434); RDW 13.5 % (11.9-15.9)
[2017-05-31 09:39] LABS: INR 1.12 (0.82-1.09); PROTHROMBIN TIME (PATIENT) 12.3 SEC (9.98-11.88)
[2017-05-31 09:50] LABS: ALBUMIN 4.5 g/dl (3.4-5.0); ANION GAP 6 (8-16); CALCIUM 9.4 mg/dL (8.5-10.1); CO2 30 mmol/L (21-32); CREATININE 0.8 mg/dL (0.7-1.3); GLUCOSE,RANDOM 83 mg/dL (74-106); SGOT/AST 16 U/L (15-37); SGPT/ALT 40 U/L (12-78)
[2017-05-31 09:51] LABS: ALK PHOS 65 U/L (45-117); BILIRUBIN,TOTAL 0.6 mg/dL (0.2-1.0); TOT PROT 7.9 g/dl (6.4-8.2)
[2017-05-31 11:04] LABS: URINE APPEARANCE SLCLOUDY; URINE BILIRUBIN NEGATIVE (NEGATIVE); URINE BLOOD NEGATIVE (NEGATIVE); URINE COLOR YELLOW; URINE GLUCOSE (UA) NEGATIVE (NEGATIVE); URINE KETONE NEGATIVE (NEGATIVE); URINE LEUK ESTERASE TRACE (NEGATIVE); URINE NITRITE NEGATIVE (NEGATIVE); URINE PROTEIN NEGATIVE (NEGATIVE); URINE UROBILINOGEN NEGATIVE mg/dL (0.2-1.0)
[2017-05-31 11:08] LABS: URINE HYALINE CAST 1 /lpf; URINE MUCUS FEW; URINE RBC <1 /hpf (0-3); URINE WBC 3 /hpf (3-5)
[2017-05-31 12:22] VITALS: BP 118/64; PULSE 76
== END 2017-05-31 12:22 | disposition home or self-care (01) ==
LOC: JER 06:24
DX: M79.605 Pain in left leg (principal); I10 Essential (primary) hypertension
CPT/HCPCS: 36415; 80053; 81003; 81015; 85025; 85610; 93971-TC; 99283-25

== ENCOUNTER 2019-04-21 05:57 | Emergency (ER) | payer OTHER ==
[2019-04-21 06:21] VITALS: BP 109/59; PULSE 59; TEMP 97.8; BMI 39.5
--- NOTE | 2019-04-21 08:38 | PDOC ---
Attending Attestation - Resident Resident Name: Alfonso Loera - ED Attending Attestation I have performed the following: I have examined & evaluated the patient, The case was reviewed & discussed with the resident, I agree w/resident's findings & plan, Exceptions are as noted - HPI HPI: 04/21/19 09:01 28y hx of htn, afib presents with abd pain x 2 weeks. patient notes that the abdominal pain is sharp in nature, worse in the suprapubic region, the patient denies any fever, chills, nausea, vomiting, dysuria, hematuria, diarrhea, melena , testicular pain, penile discharge, bcak pain, cp, sob. the patient notes that the pain is worse when summary touches it and sometimes when he is moving around. The patient denies any heavy lifting or trauma. 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 GENERAL: The patient is awake, alert, and fully oriented, Nontoxic - in no acute distress. HEAD: Normocephalic, atraumatic. EYES: extraocular movements intact, sclera anicteric, conjunctiva clear. ENT: Normal voice, Moist mucous membranes. NECK: Normal range of motion, supple LUNGS: Breath sounds equal, clear to auscultation bilaterally. No wheezes, no rhonchi, no rales. HEART: Regular rate and rhythm, normal S1 and S2 without murmur, rub or gallop. ABDOMEN: mild tenderness palpation in the left lower quadrant and suprapubic region, guarding, no CVA tenderness EXTREMITIES: Normal range of motion, no edema. NEUROLOGICAL: No facial assymetry, Normal speech, moving all 4 extremities spontaneously and symmetrically PSYCH: Normal mood, normal affect. SKIN: Warm, Dry, normal turgor, differential for the patient's symptoms includes possible UTI, consider possible diverticulitis, less likely pancreatitis and appendicitis we'll obtain blood work, urine, lipase will reassess - Physicial Exam PE: 04/22/19 08:18 see above - Medical Decision Making 04/21/19 11:28 he patient's blood work reviewed it is notable for leukocytosis. UA is negative for UTI. the patient CT suggestive of acute diverticulitis without complications/ perforations pt is a good candidate for outpatient management with PO abx. willhave pt fu with pmd and return precautions were discussed Heart Score/ECG Review - ECG Impressions Comment:: 04/21/19 09:51 Twelve-lead EKG was performed and reviewed by me. There is normal sinus rhythm with a rate of 59 q wave in III Impression: sinus bradycardia 04/21/19 09:52
--- NOTE | 2019-04-21 08:48 | PDOC ---
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 Went from on/off to constant pain. Pain on defecation, endorses constipation but last BM yesterday am. Denies N/V/D, changes in appetite. Denies dysuria, penile discharge. No h/o abd. surgeries. PMH as above Meds: flecinide, ASA, and diliazem Allergies: SOB w/ IV contrast No Surg hx Denies etoh use 04/21/19 10:51 Past History - Past Medical History Allergies/Adverse Reactions: Allergies Allergy/AdvReac Type Severity Reaction Status Date / Time No Known Allergies Allergy Verified 04/21/19 06:21 Home Medications: Ambulatory Orders Ciprofloxacin [Cipro -] 500 mg PO BID #14 tablet 04/21/19 metroNIDAZOLE [Flagyl -] 500 mg PO TID #21 tablet 04/21/19 Anemia: No Asthma: No COPD: No DVT: No Dialysis: No HTN: Yes - Surgical History Appendectomy: No Cardiac Surgery: No - Suicide/Smoking/Psychosocial Hx Smoking History: Never smoked Have you smoked in the past 12 months: No Information on smoking cessation initiated: No Hx Alcohol Use: No Drug/Substance Use Hx: No Substance Use Type: None Review of Systems - Review of Systems Able to Perform ROS?: Yes Is the patient limited Belarusian proficient: Yes Constitutional: No: Chills, Fever, Loss of Appetite Respiratory: No: Cough, Shortness of Breath Cardiac (ROS): No: Chest Pain ABD/GI: Yes: Constipated. No: Diarrhea, Nausea, Vomiting : No: Burning, Dysuria, Discharge, Frequency, Flank Pain, Hematuria, Testicular Mass, Testicular Swelling, Testicular Pain *Physical Exam - Vital Signs Last Vital Signs Temp Pulse Resp BP Pulse Ox 97.8 F 59 L 18 109/59 L 99 04/21/19 06:19 04/21/19 06:19 04/21/19 06:19 04/21/19 06:19 04/21/19 06:19 - Physical Exam Comments: 04/21/19 09:16 GI: soft, nd, no guarding. Point suprapubic TTP. : no testicular tenderness. No hernia. No urethral discharge. no swelling. General Appearance: Yes: Nourished, Appropriately Dressed. No: Apparent Distress HEENT: positive: EOMI, MARSHA, Normal Voice, Symmetrical Respiratory/Chest: positive: Lungs Clear, Normal Breath Sounds. negative: Respiratory Distress, Accessory Muscle Use, Crackles, Rales, Rhonchi, Wheezing Cardiovascular: positive: Regular Rhythm, Regular Rate, S1, S2. negative: Murmur ED Treatment Course - LABORATORY CBC & Chemistry Diagram: 04/21/19 09:40 04/21/19 09:40 Medical Decision Making - Medical Decision Making 04/21/19 09:36 28 yo M pmh HTN and A.Fib p/w 2 weeks on increasing suprapubic nonradiating abdominal pain. Otherwise ROS neg. DDx - ischemic colitis, diverticulitis, testicular torsion, hernia, muscle strain. - given normal exam unlikely testicular torsion - no hernia palpated Abd pain - CBC, CMP, Lactate - IV, NS500 - CT ABD noncon 04/21/19 12:15 CT demonstrated diverticulitis Given patient is nontoxic and otherwise healthy, will discharge with outpatient abx tx. Dispo: home on flagyl and cipro *DC/Admit/Observation/Transfer Diagnosis at time of Disposition: Diverticulitis - Discharge Dispostion Disposition: HOME Condition at time of disposition: Good Decision to Admit order: No - Prescriptions Prescriptions: Ciprofloxacin [Cipro -] 500 mg PO BID #14 tablet metroNIDAZOLE [Flagyl -] 500 mg PO TID #21 tablet - Referrals Referrals: Trevon Blankenship [Primary Care Provider] - - Patient Instructions Printed Discharge Instructions: DI for Diverticulitis Additional Instructions: You were seen and evaluated in the Emergency Department for Abdominal Pain. CT scan of your abdomen found diverticulitis which will be treated with antibiotics. Please follow up with your PRIMARY CARE DOCTOR for further management within the next 3-4 days. Please return to the Emergency Department if you experience any of the following : - increasing abdominal pain - fever / chills - inability to eat or drink - vomiting - bloody stool - change in behavior - any symptoms concerning to you - Post Discharge Activity
[2019-04-21] MEDS: SODIUM CHLORIDE 0.9% 500 ML INFUS.BAG IV ONE ×2 (09:31→12:35)
[2019-04-21 09:57] LABS: BASO % 0.7 % (0-2.0); EOS % 1.1 % (0-4.5); HEMATOCRIT 44.1 % (35.4-49); HEMOGLOBIN 15.2 GM/dL (11.7-16.9); LYMPH % 16.9 % (8-40); MCH 30.3 pg (25.7-33.7); MCHC 34.6 g/dl (32.0-35.9); MEAN CELL VOLUME 87.7 fl (80-96); MONO % 5.4 % (3.8-10.2); NEUT % 75.9 % (42.8-82.8); RBC 5.03 M/mm3 (4.00-5.60); RDW 13.5 % (11.9-15.9); WHITE BLOOD COUNT 13.2 K/mm3 (4.0-10.0)
[2019-04-21 10:09] LABS: PLATELET COUNT 206 K/MM3 (134-434)
[2019-04-21 10:14] LABS: ALBUMIN 4.3 g/dl (3.4-5.0); BILIRUBIN,TOTAL 0.5 mg/dL (0.2-1); BLOOD UREA NITROGEN 9.8 mg/dL (7-18); CALCIUM 8.9 mg/dL (8.5-10.1); CREATININE 0.8 mg/dL (0.55-1.3); POTASSIUM 3.9 mmol/L (3.5-5.1); TOT PROT 7.5 g/dl (6.4-8.2)
[2019-04-21 10:25] LABS: PH,URINE 6.5 (5.0-8.0); URINE APPEARANCE CLEAR; URINE BILIRUBIN NEGATIVE (NEGATIVE); URINE COLOR YELLOW; URINE GLUCOSE (UA) NEGATIVE (NEGATIVE); URINE KETONE NEGATIVE (NEGATIVE); URINE LEUK ESTERASE NEGATIVE (NEGATIVE); URINE NITRITE NEGATIVE (NEGATIVE); URINE PROTEIN NEGATIVE (NEGATIVE); URINE UROBILINOGEN 0.2 mg/dL (0.2-1.0)
--- NOTE | 2019-04-21 11:52 | EKG ---
Test Reason : Blood Pressure : / mmHG Vent. Rate : 059 BPM Atrial Rate : 059 BPM P-R Int : 180 ms QRS Dur : 112 ms QT Int : 416 ms P-R-T Axes : 022 021 007 degrees QTc Int : 411 ms SINUS BRADYCARDIA OTHERWISE NORMAL ECG WHEN COMPARED WITH ECG OF 25-AUG-2016 00:43, NO SIGNIFICANT CHANGE WAS FOUND Confirmed by LEONIDES ORTEGA MD ([id number]) on 04/21/2019 11:51:58 AM Referred By: Confirmed By:LEONIDES ORTEGA MD
[2019-04-21] MEDS ORDERED: metroNIDAZOLE 500 MG TABLET PO ONE (12:15)
[2019-04-21] MEDS ORDERED: CIPROFLOXACIN 500 MG TABLET (RESTRICTED TO ID) PO ONE (12:15)
[2019-04-21] MEDS ORDERED: metroNIDAZOLE 250 MG TABLET ONE (12:19)
== END 2019-04-21 12:46 | disposition home or self-care (01) ==
LOC: JER 05:57
DX: K57.92 Diverticulitis of intestine, part unspecified, without perforation or abscess without bleeding (principal); I10 Essential (primary) hypertension; I48.91 Unspecified atrial fibrillation
CPT/HCPCS: 36415; 74176-TC; 80053; 81003; 83605; 83690; 85025; 93005; 93010; 99283-25

== ENCOUNTER 2019-07-03 02:14 | Emergency (ER) | payer OTHER ==
--- NOTE | 2019-07-03 02:33 | PDOC ---
History of Present Illness - General Chief Complaint: Cold Symptoms Stated Complaint: DIFFICULTY BREATHING Time Seen by Provider: 07/03/19 02:32 History Source: Patient - History of Present Illness Initial Comments: 07/03/19 02:59 28 year old male c/o nasal congestion, cough, post nasal drip , chest congestion x 3 days. patient reports that he had bronchitis one month ago. 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 Hypertension, Atrial fib currently on Flecainide 07/03/19 03:05 Past History - Past Medical History Allergies/Adverse Reactions: Allergies Allergy/AdvReac Type Severity Reaction Status Date / Time No Known Allergies Allergy Verified 07/03/19 02:44 Home Medications: Ambulatory Orders Ciprofloxacin [Cipro -] 500 mg PO BID #14 tablet 04/21/19 metroNIDAZOLE [Flagyl -] 500 mg PO TID #21 tablet 04/21/19 Azithromycin [Zithromax 250mg Tablets -] 250 mg PO UTDICT #6 tab 07/03/19 Fluticasone Prop 0.05% Nasal [Flonase -] 1 - 2 spray NS BID PRN #1 spray.pump Anemia: No Asthma: No COPD: No DVT: No Dialysis: No HTN: Yes - Surgical History Appendectomy: No Cardiac Surgery: No - Suicide/Smoking/Psychosocial Hx Smoking History: Never smoked Have you smoked in the past 12 months: No Hx Alcohol Use: No Drug/Substance Use Hx: No Substance Use Type: None Respiratory Specific PMHX - Complaint Specific PMHX Angina: No Pulmonary Embolus: No Review of Systems - Review of Systems Able to Perform ROS?: Yes Is the patient limited Mexican proficient: No Constitutional: No: Symptoms Reported, See HPI, Chills, Diaphoresis, Fever, Loss of Appetite, Malaise, Night Sweats, Weakness, Weight Stable, Unintentional Wgt. Loss, Unexplained wgt Loss, Other HEENTM: Yes: Nose Congestion Respiratory: Yes: Cough Cardiac (ROS): No: Symptoms Reported, See HPI, Chest Pain, Edema, Irregular Heart Rate, Lightheadedness, Palpitations, Syncope, Chest Tightness, Other *Physical Exam - Vital Signs 07/03/19 03:18 Last Vital Signs Temp Pulse Resp BP Pulse Ox 98.8 F 54 L 19 127/89 98 07/03/19 02:36 07/03/19 02:36 07/03/19 02:36 07/03/19 02:36 07/03/19 02:36 - Physical Exam General Appearance: Yes: Appropriately Dressed HEENT: positive: Pharyngeal Erythema, Nasal Congestion Respiratory/Chest: positive: Lungs Clear, Normal Breath Sounds Cardiovascular: positive: Regular Rhythm, Regular Rate Extremity: positive: Normal Capillary Refill, Normal Inspection, Normal Range of Motion Integumentary: positive: Normal Color, Dry, Warm Neurologic: positive: Fully Oriented, Alert, Normal Mood/Affect Progress Note - Progress Note Progress Note: Cold symptoms P: chest xray EKG saline neb Medical Decision Making - Medical Decision Making patient reports AFib s/p albuterol *DC/Admit/Observation/Transfer Diagnosis at time of Disposition: Cough Upper respiratory infection Qualifiers: URI type: unspecified URI Qualified Code(s): J06.9 - Acute upper respiratory infection, unspecified - Discharge Dispostion Condition at time of disposition: Fair - Referrals Referrals: Trevon Blankenship [Primary Care Provider] - - Patient Instructions Printed Discharge Instructions: DI for Common Cold Additional Instructions: drink plenty of fluids - Post Discharge Activity Forms/Work/School Notes: Back to Work
--- NOTE | 2019-07-03 02:37 | PDOC ---
Medical Decision Making - Medical Decision Making 07/03/19 02:36 Patient seen by the advanced practice provider under my direct supervision. Ancillary testing reviewed as necessary. I agree with plan as outlined by the advanced practice provider. *DC/Admit/Observation/Transfer Diagnosis at time of Disposition: Cough Upper respiratory infection Qualifiers: URI type: unspecified URI Qualified Code(s): J06.9 - Acute upper respiratory infection, unspecified - Discharge Dispostion Disposition: HOME Condition at time of disposition: Fair - Prescriptions Prescriptions: Azithromycin [Zithromax 250mg Tablets -] 250 mg PO UTDICT #6 tab Fluticasone Prop 0.05% Nasal [Flonase -] 1 - 2 spray NS BID PRN #1 spray.pump PRN Reason: Nasal Congestion Sodium Chloride [Saline Nose Seguin] 1 ml NS QID PRN #1 spray PRN Reason: Nasal Congestion - Referrals Referrals: Trevon Blankenship [Primary Care Provider] - - Patient Instructions Printed Discharge Instructions: DI for Common Cold Additional Instructions: drink plenty of fluids - Post Discharge Activity Forms/Work/School Notes: Back to Work Discharge - Discharge Information Problems reviewed: Yes Clinical Impression/Diagnosis: Cough Upper respiratory infection Qualifiers: URI type: unspecified URI Qualified Code(s): J06.9 - Acute upper respiratory infection, unspecified Condition: Fair Disposition: HOME - Additional Discharge Information Prescriptions: Azithromycin [Zithromax 250mg Tablets -] 250 mg PO UTDICT #6 tab Fluticasone Prop 0.05% Nasal [Flonase -] 1 - 2 spray NS BID PRN #1 spray.pump PRN Reason: Nasal Congestion Sodium Chloride [Saline Nose Seguin] 1 ml NS QID PRN #1 spray PRN Reason: Nasal Congestion - Follow up/Referral Referrals: Trevon Blankenship [Primary Care Provider] - - Patient Discharge Instructions Patient Printed Discharge Instructions: DI for Common Cold Additional Instructions: drink plenty of fluids - Post Discharge Activity Work/Back to School Note: Back to Work
[2019-07-03 02:47] VITALS: BP 127/89; PULSE 54; TEMP 98.8; BMI 39.5
[2019-07-03] MEDS ORDERED: SODIUM CHLORIDE FOR INHALATION 3 ML VIAL.NEB IH ONE (02:56)
--- NOTE | 2019-07-03 10:43 | EKG ---
Test Reason : Blood Pressure : / mmHG Vent. Rate : 054 BPM Atrial Rate : 054 BPM P-R Int : 178 ms QRS Dur : 114 ms QT Int : 420 ms P-R-T Axes : 022 018 012 degrees QTc Int : 398 ms SINUS BRADYCARDIA WITH SINUS ARRHYTHMIA NONSPECIFIC T WAVE ABNORMALITY ABNORMAL ECG WHEN COMPARED WITH ECG OF 21-APR-2019 09:21, NO SIGNIFICANT CHANGE WAS FOUND Confirmed by JORDAN LANDEROS, LEONIDES ([id number]) on 07/03/2019 10:43:05 AM Referred By: Confirmed By:LEONIDES ORTEGA MD
== END 2019-07-03 06:20 | disposition home or self-care (01) ==
LOC: JER 02:14
PROC: 3E0F7GC Introduction of Other Therapeutic Substance into Respiratory Tract, Via Natural or Artificial Opening (ICD-10-PCS; principal; 2019-07-03)
DX: J06.9 Acute upper respiratory infection, unspecified (principal); I10 Essential (primary) hypertension; I48.91 Unspecified atrial fibrillation
CPT/HCPCS: 71046-TC-FY; 93005; 93010; 99281-25

== ENCOUNTER 2024-06-21 07:46 | Emergency (ER) | payer OTHER ==
[2024-06-21 08:03] VITALS: PULSE 60; RESP 16; TEMP 98.4; BMI 42.3
[2024-06-21 08:56] VITALS: BP 141/82
[2024-06-21 09:37] LABS: HEMATOCRIT 43.2 % (35.4-49); HEMOGLOBIN 14.8 GM/dL (11.7-16.9); MCH 29.7 pg (25.7-33.7); MCHC 34.2 g/dl (32.0-35.9); MEAN PLT VOLUME 9.2 fl (7.5-11.1); PLATELET COUNT 210 10^3/uL (134-434); RBC 4.97 M/mm3 (4.00-5.60); RDW 13.9 % (11.9-15.9); WHITE BLOOD COUNT 8.9 K/mm3 (4.0-10.0)
[2024-06-21 10:02] LABS: POTASSIUM 3.8 mmol/L (3.5-5.1)
[2024-06-21 10:03] LABS: CALCIUM 9.2 mg/dL (8.5-10.1)
[2024-06-21 10:04] LABS: ALBUMIN 4.3 g/dl (3.4-5.0); BLOOD UREA NITROGEN 10.3 mg/dL (7-18)
[2024-06-21 10:07] LABS: CREATININE 0.8 mg/dL (0.55-1.3)
[2024-06-21 10:09] LABS: BILIRUBIN,TOTAL 0.6 mg/dL (0.2-1); TOT PROT 7.4 g/dl (6.4-8.2)
== END 2024-06-21 10:59 | disposition home or self-care (01) ==
LOC: JER 07:46 → JERFT 07:46 → JER 10:59
DX: R53.1 Weakness (principal); R11.0 Nausea; R68.2 Dry mouth, unspecified
CPT/HCPCS: 36415; 80053; 82375; 85027; 93005; 93010; 99284-25

== ENCOUNTER 2024-07-27 05:06 | Emergency (ER) | payer OTHER ==
[2024-07-27 05:20] VITALS: BP 136/91; PULSE 70; RESP 19; TEMP 97.7; BMI 43.5
[2024-07-27] MEDS ORDERED: ACETAMINOPHEN 325 MG TABLET (FP) ONE (05:30)
[2024-07-27] MEDS: ACETAMINOPHEN 500 MG TABLET (FP) PO ONE (05:32)
== END 2024-07-27 06:38 | disposition home or self-care (01) ==
LOC: JER 05:06
DX: R51.9 Headache, unspecified (principal)
CPT/HCPCS: 99283-25

== ENCOUNTER 2024-08-17 04:14 | Emergency (ER) | payer OTHER ==
[2024-08-17 04:20] VITALS: BP 109/69; PULSE 85; RESP 19; TEMP 97.7; BMI 43.5
[2024-08-17 07:21] LABS: ARTERIAL BLD GAS O2 SATURATION 97.7 % (95-98); ARTERIAL BLOOD GAS BASE EXCESS -4.4 mmol/L (-2-2); ARTERIAL BLOOD GAS PO2 104.3 mmHg (80-100); ARTERIAL BLOOD GAS pH 7.371 (7.350-7.450)
== END 2024-08-17 08:30 | disposition home or self-care (01) ==
LOC: JER 04:14
DX: R42 Dizziness and giddiness (principal); T58.91XA Toxic effect of carbon monoxide from unspecified source, accidental (unintentional), initial encounter; X15.0XXA Contact with hot stove (kitchen), initial encounter
CPT/HCPCS: 36600; 82375; 82803; 99283-25

== ENCOUNTER 2024-11-22 05:28 | Emergency (ER) | payer OTHER ==
[2024-11-22 05:36] VITALS: RESP 20; TEMP 97.5; BMI 43.5
[2024-11-22 09:04] LABS: ARTERIAL BLD GAS O2 SATURATION 97.9 % (95-98); ARTERIAL BLOOD GAS BASE EXCESS -2.1 mmol/L (-2-2); ARTERIAL BLOOD GAS PO2 104.5 mmHg (80-100); ARTERIAL BLOOD GAS pH 7.411 (7.350-7.450)
[2024-11-22] MEDS ORDERED: ACETAMINOPHEN 325 MG TABLET (FP) ONE (10:37)
[2024-11-22] MEDS: ACETAMINOPHEN 325 MG TABLET (FP) PO ONE (10:40)
[2024-11-22 11:25] VITALS: BP 113/75; PULSE 55
== END 2024-11-22 11:28 | disposition home or self-care (01) ==
LOC: JER 05:28
DX: R11.0 Nausea (principal); R42 Dizziness and giddiness; R51.9 Headache, unspecified; R06.02 Shortness of breath; R00.1 Bradycardia, unspecified
CPT/HCPCS: 36600; 82375; 82803; 93005; 93010; 99284-25